=== PATIENT | male | born 1935 | race Caucasian/White ===

== ENCOUNTER 2024-06-11 11:51 | Inpatient (IN) | payer MEDICARE, OTHER ==
[~2024-06-11] VITALS: Ht 167.6 cm; Wt 72.6 kg
[2024-06-11 13:01] LABS: BASOPHILS % (AUTO) 0.2 % (0.0-2.0); EOSINOPHILS % (AUTO) 0.4 % (0.0-7.0); HEMATOCRIT 35.4 % (36.7-47.1); HEMOGLOBIN 11.5 g/dL (12.5-16.3); LYMPHOCYTES # (AUTO) 0.5 K/uL (0.8-4.8); LYMPHOCYTES % (AUTO) 8.8 % (20.5-51.5); MEAN CORPUSCULAR HEMOGLOBIN 27.6 uug (23.8-33.4); MEAN CORPUSCULAR HGB CONC 32 g/dL (32.5-36.3); MEAN CORPUSCULAR VOLUME 85.3 fL (73.0-96.2); MONOCYTES # (AUTO) 0.3 K/uL (0.1-1.30); MONOCYTES % (AUTO) 6.2 % (0.0-11.0); NEUTROPHILS # (AUTO) 4.5 K/uL (1.8-8.9); NEUTROPHILS % (AUTO) 84.4 % (38.5-71.5); PLATELET COUNT (AUTO) 312 K/uL (152-348); RED BLOOD CELL COUNT(AUTO) 4.15 MIL/uL (4.06-5.63); RED CELL DISTRIBUTION WIDTH 16.7 % (12.1-16.2); WHITE BLOOD COUNT (AUTO) 5.3 K/uL (3.6-10.2)
[2024-06-11 13:15] LABS: DIFFERENTIAL COMMENT 1
[2024-06-11 13:18] LABS: CALCIUM 8.6 mg/dL (8.5-10.1); CARBON DIOXIDE 24 mmol/L (21-32); CHLORIDE 108 mmol/L (98-107); CREATININE 1.1 mg/dL (0.6-1.3); GLUCOSE 194 mg/dL (74-106); POTASSIUM 4.2 mmol/L (3.5-5.1); SODIUM SERUM 140 mmol/L (136-145); UREA NITROGEN, BLOOD 24 mg/dL (7-18)
[2024-06-11 13:31] LABS: ALANINE AMINOTRANSFERASE 21 U/L (16-63); ALKALINE PHOSPHATASE 145 U/L (50-136); ASPARTATE AMINOTRANSFERASE 48 U/L (15-37); BILIRUBIN,DIRECT 0.8 mg/dL (0.0-0.2); BILIRUBIN,TOTAL 1.3 mg/dL (0.2-1.0); LIPASE 34 U/L (16-77); TOTAL PROTEIN, SERUM 5.1 g/dL (6.4-8.2)
[2024-06-11 13:54] LABS: *OCCULT BLOOD STOOL POSITIVE (NEGATIVE)
[2024-06-11 14:50] LABS: *BILIRUBIN,URIN NEGATIVE (NEGATIVE); *CLARITY,URINE CLEAR (CLEAR); *COLOR,URINE YELLOW (YELLOW); *KETONES,URINE 1+ (NEGATIVE); *PROTEIN,URINE 1+ (NEGATIVE); LEUKOCYTE ESTERASE ,URINE TRACE (NEGATIVE); NITRITE, URINE NEGATIVE (NEGATIVE); PH,URINE 5.5 (5.0-8.0); UGLUCOSE 3+ (NEGATIVE)
[2024-06-11 14:54] LABS: *BLOOD, URINE TRACE (NEGATIVE)
[2024-06-11] MEDS ORDERED: AZITHROMYCIN 500MG/ D5W 250ML IVPB **ER PYXIS ONLY IV ONE (15:00)
[2024-06-11] MEDS ORDERED: CEFTRIAXONE /D5W 50ML IVPB **ER PYXIS IV ONE (15:00)
[2024-06-11] MEDS: CEFTRIAXONE 1 G in IV DEXTROSE 5% 50 ML IV ONE (15:01)
[2024-06-11 15:13] LABS: BACTERIA,URINE FEW /HPF (NONE SEEN); RBC,URINE 0-3 /HPF (0-3); WBC,URINE 0-3 /HPF (0-3)
[2024-06-11 15:16] LABS: SQUAMOUS EPITHELIAL CELL,UR MODERATE /HPF (NONE SEEN)
[2024-06-11] MEDS ORDERED: LOSA25TA27 PO (15:52)
[2024-06-11] MEDS ORDERED: EZET10TA32 PO (15:52)
[2024-06-11] MEDS ORDERED: APIX2.5T (15:52)
[2024-06-11] MEDS ORDERED: METF-886 PO (15:52)
[2024-06-11] MEDS ORDERED: LATA2.5D15 EACHEYE (15:52)
[2024-06-11] MEDS ORDERED: TIMOLOL (15:52)
[2024-06-11] MEDS ORDERED: TAMSULOSIN (15:52)
[2024-06-11] MEDS ORDERED: TAMS-3 PO (15:52)
[2024-06-11] MEDS ORDERED: PANT40TA49 PO (15:52)
[2024-06-11] MEDS ORDERED: AZEL137S7 BNOSTRILS (15:52)
[2024-06-11] MEDS: AZITHROMYCIN IV 500 MG in IV DEXTROSE 5% 250 ML IV ONE (15:56)
[2024-06-11] MEDS ORDERED: ONDANSETRON 4 MG/2 ML VIAL IV PRN (18:45)
[2024-06-11] MEDS ORDERED: ACETAMINOPHEN 325 MG TABLET PO PRN (18:45)
[2024-06-11 21:32] VITALS: BP 108/76; TEMP 98.4; O2SAT 95
[2024-06-11] MEDS: ENOXAPARIN SODIUM 40 MG/0.4 ML DISP.SYRIN SQ SCH (22:06)
[2024-06-11] MEDS: SORBITOL 70% SOLUTION 30 ML UDC PO ONE (22:14)
[2024-06-11] MEDS: LACTULOSE 20 G/30 ML LIQUID UDC PO ONE (22:14)
[2024-06-12] VITALS (8 sets, daily range): BP systolic 93–123; BP diastolic 51–80; TEMP 97.2–98.2; O2SAT 88–98
[2024-06-12] MEDS: ACETAMINOPHEN 325 MG TABLET PO PRN (01:46)
[2024-06-12] MEDS: BISACODYL 10 MG SUPP.RECT RC ONE (01:46)
[2024-06-12 06:42] LABS: BASOPHILS % (AUTO) 0.2 % (0.0-2.0); EOSINOPHILS % (AUTO) 0.1 % (0.0-7.0); HEMATOCRIT 37.6 % (36.7-47.1); HEMOGLOBIN 12.3 g/dL (12.5-16.3); LYMPHOCYTES # (AUTO) 0.5 K/uL (0.8-4.8); LYMPHOCYTES % (AUTO) 7.9 % (20.5-51.5); MEAN CORPUSCULAR HEMOGLOBIN 27.7 uug (23.8-33.4); MEAN CORPUSCULAR HGB CONC 33 g/dL (32.5-36.3); MEAN CORPUSCULAR VOLUME 84.7 fL (73.0-96.2); MONOCYTES # (AUTO) 0.5 K/uL (0.1-1.30); MONOCYTES % (AUTO) 7.1 % (0.0-11.0); NEUTROPHILS # (AUTO) 5.8 K/uL (1.8-8.9); NEUTROPHILS % (AUTO) 84.7 % (38.5-71.5); PLATELET COUNT (AUTO) 382 K/uL (152-348); RED BLOOD CELL COUNT(AUTO) 4.44 MIL/uL (4.06-5.63); RED CELL DISTRIBUTION WIDTH 16.8 % (12.1-16.2); WHITE BLOOD COUNT (AUTO) 6.9 K/uL (3.6-10.2)
[2024-06-12 07:00] LABS: CALCIUM 9.1 mg/dL (8.5-10.1); CARBON DIOXIDE 28 mmol/L (21-32); CHLORIDE 109 mmol/L (98-107); GLUCOSE 139 mg/dL (74-106); MAGNESIUM 2.4 mg/dL (1.8-2.4); PHOSPHOROUS 2.6 mg/dL (2.5-4.9); POTASSIUM 4.7 mmol/L (3.5-5.1); SODIUM SERUM 145 mmol/L (136-145); UREA NITROGEN, BLOOD 22 mg/dL (7-18)
[2024-06-12 07:12] LABS: DIFFERENTIAL COMMENT 1
[2024-06-12] MEDS ORDERED: IPRATROPIUM BROMIDE 0.5 MG/2.5 ML NEBU NEB PRN (11:30)
[2024-06-12] MEDS ORDERED: ALBUTEROL SULFATE 1.25 MG/3 ML NEBU NEB PRN (11:30)
[2024-06-12] MEDS ORDERED: ROSU40TA PO (11:37)
[2024-06-12] MEDS: IV NS 1000 ML 1,000 ML IV PRN (12:05)
[2024-06-12] MEDS: CEFTRIAXONE 1 G in IV DEXTROSE 5% 50 ML IV SCH (14:00)
[2024-06-12] MEDS: AZITHROMYCIN IV 500 MG in IV DEXTROSE 5% 250 ML IV SCH (14:58)
[2024-06-12] MEDS ORDERED: SACU1TAB PO (15:52)
[2024-06-12] MEDS ORDERED: EPLE25TA10 PO (15:52)
[2024-06-12] MEDS ORDERED: ASPI81TA31 PO (15:52)
[2024-06-12] MEDS ORDERED: FERR-68 PO (15:52)
[2024-06-12] MEDS ORDERED: TIMO5DRO18 EACHEYE (15:52)
[2024-06-12] MEDS ORDERED: LIPA1CAP15 PO (15:52)
[2024-06-12] MEDS: EZETIMIBE 10 MG TABLET PO SCH (17:25)
[2024-06-12] MEDS: TAMSULOSIN HCL 0.4 MG CAP.SR.24H PO SCH (17:25)
[2024-06-12] MEDS: ASPIRIN 81 MG TAB.CHEW PO SCH (17:25)
[2024-06-12] MEDS: FERROUS SULFATE 325 MG TABEC PO SCH (17:26)
[2024-06-12] MEDS: LOSARTAN POTASSIUM 25 MG TABLET PO SCH (17:26)
[2024-06-12] MEDS: TIMOLOL MALEATE 0.5% OPHT DROP 5 ML BOTTLE EACHEYE SCH (17:28)
[2024-06-12] MEDS: SACUBITRIL/VALSARTAN 24 MG-26 TABLET PO SCH (17:29)
[2024-06-12] MEDS: LIPASE/PROTEASE/AMYLASE 4200 UNITS CAPSULE.DR PO SCH (17:30)
[2024-06-12] MEDS: METFORMIN XR 500 MG TAB.SR.24H PO SCH (17:32)
[2024-06-12] MEDS ORDERED: Medication Not On Formulary EA (Lipase/Protease/Amylase (Creon Dr 36,000 Units Capsule) PO SCH (18:00)
[2024-06-12] MEDS: ATORVASTATIN 40 MG TABLET PO SCH (21:30)
[2024-06-12] MEDS: LATANOPROST OPHT DROP 2.5 ML BOTTLE EACHEYE SCH (21:30)
[2024-06-12] MEDS: APIXABAN 2.5 MG TABLET PO SCH (21:31)
[2024-06-13] VITALS (8 sets, daily range): BP systolic 87–115; BP diastolic 45–58; TEMP 97.5–98.3; O2SAT 92–100
[2024-06-13] MEDS: PANTOPRAZOLE SODIUM 40 MG TABLET.DR PO SCH (06:25)
[2024-06-13 07:21] LABS: BASOPHILS % (AUTO) 0.3 % (0.0-2.0); EOSINOPHILS % (AUTO) 0.9 % (0.0-7.0); HEMATOCRIT 33.1 % (36.7-47.1); LYMPHOCYTES # (AUTO) 0.8 K/uL (0.8-4.8); MEAN CORPUSCULAR HEMOGLOBIN 28.1 uug (23.8-33.4); MEAN CORPUSCULAR HGB CONC 33 g/dL (32.5-36.3); MEAN CORPUSCULAR VOLUME 84.8 fL (73.0-96.2); MONOCYTES # (AUTO) 0.4 K/uL (0.1-1.30); MONOCYTES % (AUTO) 9.5 % (0.0-11.0); NEUTROPHILS # (AUTO) 3.2 K/uL (1.8-8.9); NEUTROPHILS % (AUTO) 71.3 % (38.5-71.5); PLATELET COUNT (AUTO) 305 K/uL (152-348); RED BLOOD CELL COUNT(AUTO) 3.91 MIL/uL (4.06-5.63); RED CELL DISTRIBUTION WIDTH 16.8 % (12.1-16.2); WHITE BLOOD COUNT (AUTO) 4.5 K/uL (3.6-10.2)
[2024-06-13 07:49] LABS: DIFFERENTIAL COMMENT 1
[2024-06-13 08:20] LABS: ABG BASE EXCESS -1.3 mmol/L (-2.0-3.0); ABG HCO3 21.7 mmol/L (21.0-28.0); ABG PH 7.463 (7.350-7.450); ABG PO2 69.1 mmHg (83.0-108.0); ABG SITE LEFT RADIAL; ABG TOTAL HEMOGLOBIN 12.2 G/dL (13.5-17.5); COHb 0.9 % (0.5-1.5); MetHb 0.3 % (0.0-1.5); O2Hb 92.8 % (94.0-98.0)
[2024-06-13 09:05] LABS: CALCIUM 8.6 mg/dL (8.5-10.1); CARBON DIOXIDE 26 mmol/L (21-32); CHLORIDE 109 mmol/L (98-107); CREATININE 0.9 mg/dL (0.6-1.3); GLUCOSE 117 mg/dL (74-106); MAGNESIUM 2.3 mg/dL (1.8-2.4); PHOSPHOROUS 1.6 mg/dL (2.5-4.9); POTASSIUM 4.3 mmol/L (3.5-5.1); SODIUM SERUM 144 mmol/L (136-145); UREA NITROGEN, BLOOD 19 mg/dL (7-18)
[2024-06-13] MEDS: NEUTRA PHOS PACKET PO ONE (18:30)
[2024-06-14 00:04] VITALS: BP 126/74; TEMP 97.8; O2SAT 96
[2024-06-14 00:11] VITALS: O2SAT 96
[2024-06-14 04:37] VITALS: BP 127/61; TEMP 97.7; O2SAT 94
[2024-06-14 07:03] LABS: BASOPHILS % (AUTO) 0.5 % (0.0-2.0); EOSINOPHILS % (AUTO) 0.8 % (0.0-7.0); HEMOGLOBIN 11.5 g/dL (12.5-16.3); LYMPHOCYTES # (AUTO) 0.8 K/uL (0.8-4.8); LYMPHOCYTES % (AUTO) 16.2 % (20.5-51.5); MEAN CORPUSCULAR HEMOGLOBIN 27.5 uug (23.8-33.4); MEAN CORPUSCULAR HGB CONC 33 g/dL (32.5-36.3); MEAN CORPUSCULAR VOLUME 83.6 fL (73.0-96.2); MONOCYTES # (AUTO) 0.4 K/uL (0.1-1.30); MONOCYTES % (AUTO) 8.1 % (0.0-11.0); NEUTROPHILS # (AUTO) 3.7 K/uL (1.8-8.9); NEUTROPHILS % (AUTO) 74.4 % (38.5-71.5); PLATELET COUNT (AUTO) 333 K/uL (152-348); RED BLOOD CELL COUNT(AUTO) 4.18 MIL/uL (4.06-5.63); RED CELL DISTRIBUTION WIDTH 17.2 % (12.1-16.2); WHITE BLOOD COUNT (AUTO) 4.9 K/uL (3.6-10.2)
[2024-06-14 07:28] LABS: CALCIUM 8.4 mg/dL (8.5-10.1); CARBON DIOXIDE 28 mmol/L (21-32); CHLORIDE 107 mmol/L (98-107); CREATININE 0.9 mg/dL (0.6-1.3); GLUCOSE 135 mg/dL (74-106); MAGNESIUM 2.1 mg/dL (1.8-2.4); PHOSPHOROUS 1.7 mg/dL (2.5-4.9); POTASSIUM 3.6 mmol/L (3.5-5.1); SODIUM SERUM 141 mmol/L (136-145); UREA NITROGEN, BLOOD 20 mg/dL (7-18)
[2024-06-14 07:30] VITALS: BP 121/76; TEMP 97.8; O2SAT 97
[2024-06-14 07:38] LABS: DIFFERENTIAL COMMENT 1
[2024-06-14 11:30] VITALS: BP 92/52; TEMP 97.8; O2SAT 98
[2024-06-14] MEDS: AZITHROMYCIN 250 MG TABLET PO SCH (14:27)
[2024-06-14] MEDS ORDERED: LEVO500T90 PO (14:45)
[2024-06-14 15:30] VITALS: BP 107/63; TEMP 97.8; O2SAT 97
[2024-06-14] MEDS: NEUTRA PHOS PACKET PO ONE (17:59)
[2024-06-15 03:06] VITALS: O2SAT 96
[2024-06-15 07:58] VITALS: BP 135/61; TEMP 98; O2SAT 99
== END 2024-06-14 19:45 | disposition home health service (06) | DRG 689 ==
LOC: ER 11:51 → TELE3 20:45 → MEDSURG3 06-14 10:06
PROVIDERS: ADMIT Nurse Practitioner Acute Care; ATTEND Nurse Practitioner Acute Care
PROC: 05HC33Z Insertion of Infusion Device into Left Basilic Vein, Percutaneous Approach (ICD-10-PCS; principal; 2024-06-13)
DX: N39.0 Urinary tract infection, site not specified (principal); J15.9 Unspecified bacterial pneumonia; E44.0 Moderate protein-calorie malnutrition; J98.11 Atelectasis; J91.8 Pleural effusion in other conditions classified elsewhere; K57.32 Diverticulitis of large intestine without perforation or abscess without bleeding; I31.39 Other pericardial effusion (noninflammatory); B96.89 Other specified bacterial agents as the cause of diseases classified elsewhere; K80.20 Calculus of gallbladder without cholecystitis without obstruction; D64.9 Anemia, unspecified; E88.09 Other disorders of plasma-protein metabolism, not elsewhere classified; K44.9 Diaphragmatic hernia without obstruction or gangrene; I48.91 Unspecified atrial fibrillation; I71.43 Infrarenal abdominal aortic aneurysm, without rupture; E78.5 Hyperlipidemia, unspecified; K59.00 Constipation, unspecified; N20.0 Calculus of kidney; I11.9 Hypertensive heart disease without heart failure; E11.9 Type 2 diabetes mellitus without complications; I25.10 Atherosclerotic heart disease of native coronary artery without angina pectoris; R79.89 Other specified abnormal findings of blood chemistry; R93.2 Abnormal findings on diagnostic imaging of liver and biliary tract; Z95.820 Peripheral vascular angioplasty status with implants and grafts; Z95.0 Presence of cardiac pacemaker; Z79.84 Long term (current) use of oral hypoglycemic drugs; Z79.82 Long term (current) use of aspirin; Z79.899 Other long term (current) drug therapy; Z79.01 Long term (current) use of anticoagulants; Z95.5 Presence of coronary angioplasty implant and graft; R09.02 Hypoxemia
CPT/HCPCS: 36415; 36600; 71045; 71250; 82803; 83605; 83690; 83735; 84100; 84484; 85025; 85730; 86140; 87040; 93307; A4606; A4663; G0378; J0456; J0696; J1650; J7040; J7050; Q0144